=== PATIENT | male | born 1960 | race American Indian/Alaskan Native ===

== ENCOUNTER 2020-12-20 10:15 | Emergency (ER) | payer BC ==
[2020-12-20] MEDS ORDERED: hydrALAZINE 20 MG/1 ML INJ IV ONE (10:45)
--- NOTE | 2020-12-20 10:51 | Emergency Department Report ---
HPI - General Chief Complaint: High BP Time Seen by Provider: 12/20/20 10:45 - HPI HPI: 60-year-old -[place] male presents to the emergency department with complaint of elevated and uncontrolled blood pressure. He was sent in by a local physician after he tried to establish care with them for primary care needs. The patient presents to our triage with a blood pressure of 227/109. He denies any headache, vision change, slurred speech, chest pain, shortness of breath, lower extremity swelling, back pain. The patient does have a history of hypertension but has not been on blood pressure medications for the past 3 years due to financial issues. He is a former tobacco smoker. He drinks an occasional cup of coffee but denies any excessive caffeine use. He has not taken anything, nor was given anything, for his elevated blood pressure prior to presentation today. ED Past Medical Hx - Past Medical History Hx Hypertension: Yes (Pt. verbalized not taking meds since 03/05 due to expense.) Hx Heart Attack/AMI: No Hx Congestive Heart Failure: No Hx Diabetes: No Hx Deep Vein Thrombosis: No Hx Asthma: No Hx COPD: No - Surgical History Hx Coronary Stent: Yes (Stent X 1 in 2013) Hx Pacemaker: No Hx Internal Defibrillator: No - Social History Smoking Status: Former Smoker - Medications Home Medications: Home Medications Medication Instructions Recorded Confirmed Last Taken Type Aspirin EC [Ecotrin] 325 mg PO QDAY #30 tablet 09/26/15 Unknown Rx AtorvaSTATin [Lipitor] 20 mg PO QHS #30 tablet 09/26/15 Unknown Rx Metoprolol [Lopressor TAB] 12.5 mg PO BID #60 tablet 09/26/15 Unknown Rx Nitroglycerin [Nitrostat] 0.4 mg SL Q5M PRN #30 tablet 09/26/15 Unknown Rx lisinopriL [Zestril TAB] 20 mg PO QDAY #30 tablet 12/20/20 Unknown Rx ED Review of Systems ROS: Stated complaint: high blood pressure Other details as noted in HPI Comment: All other systems reviewed and negative Constitutional: denies: chills, fever Eyes: denies: eye pain, vision change ENT: denies: ear pain, throat pain Respiratory: denies: cough, shortness of breath Cardiovascular: denies: chest pain, palpitations Gastrointestinal: denies: abdominal pain, vomiting Genitourinary: denies: dysuria, discharge Musculoskeletal: denies: back pain, arthralgia Skin: denies: rash, lesions Neurological: denies: headache, weakness Physical Exam - Physical Exam Vital Signs: Vital Signs 12/20/20 10:22 Temperature 98 F Pulse Rate 74 Respiratory 20 Rate Blood Pressure 227/109 [Left] O2 Sat by Pulse 97 Oximetry Physical Exam: GENERAL: The patient is well-developed well-nourished. HENT: Normocephalic. Atraumatic. Patient has moist mucous membranes. EYES: Extraocular motions are intact. NECK: Supple. Trachea is midline. CHEST/LUNGS: Clear to auscultation. There is no respiratory distress noted. HEART/CARDIOVASCULAR: Regular. There is no tachycardia. There is no murmur. ABDOMEN: Abdomen is soft, nontender. Patient has normal bowel sounds. SKIN: Skin is warm and dry. NEURO: The patient is awake, alert, and oriented. The patient is cooperative. The patient has no focal neurologic deficits. Normal speech. MUSCULOSKELETAL: There is no tenderness or deformity. There is no limitation range of motion. ED Course Vital Signs 12/20/20 10:22 Temperature 98 F Pulse Rate 74 Respiratory 20 Rate Blood Pressure 227/109 [Left] O2 Sat by Pulse 97 Oximetry ED Medical Decision Making - Lab Data Result diagrams: 12/20/20 10:45 12/20/20 10:45 Lab Results 12/20/20 12/20/20 Range/Units 10:45 10:45 WBC 4.8 (4.5-11.0) K/mm3 RBC 4.46 (3.65-5.03) M/mm3 Hgb 13.5 (11.8-15.2) gm/dl Hct 39.8 (35.5-45.6) % MCV 89 (84-94) fl MCH 30 (28-32) pg MCHC 34 (32-34) % RDW 14.7 (13.2-15.2) % Plt Count 208 (140-440) K/mm3 Lymph % (Auto) 18.9 (13.4-35.0) % Hill % (Auto) 6.1 (0.0-7.3) % Eos % (Auto) 1.6 (0.0-4.3) % Baso % (Auto) 1.1 (0.0-1.8) % Lymph # (Auto) 0.9 L (1.2-5.4) K/mm3 Hill # (Auto) 0.3 (0.0-0.8) K/mm3 Eos # (Auto) 0.1 (0.0-0.4) K/mm3 Baso # (Auto) 0.1 (0.0-0.1) K/mm3 Seg Neutrophils % 72.3 H (40.0-70.0) % Seg Neutrophils # 3.5 (1.8-7.7) K/mm3 Sodium 140 (137-145) mmol/L Potassium 3.9 (3.6-5.0) mmol/L Chloride 106.6 (98-107) mmol/L Carbon Dioxide 21 L (22-30) mmol/L Anion Gap 16 mmol/L BUN 19 (9-20) mg/dL Creatinine 1.4 H (0.8-1.3) mg/dL Estimated GFR > 60 ml/min BUN/Creatinine Ratio 14 % Glucose 118 H (75-100) mg/dL Calcium 9.2 (8.4-10.2) mg/dL - Medical Decision Making This patient presents to the emergency department with elevated and uncontrolled blood pressure, but he is otherwise asymptomatic. He was sent in by a physician whom he was trying to establish care with for primary care after the elevated blood pressure was found in triage. Patient does have a history of hypertension but has been noncompliant with medications for the past 3 years. Patient's labs have been unremarkable including CBC and metabolic panel. He was given a dose of hydralazine and his blood pressure came down to a much more reasonable level. For all these reasons he appears safe for discharge home at this time. He has been started on lisinopril, which was the last blood pressure medication the patient took regularly that worked for him. We discussed dietary and/or lifestyle changes such as decrease salt and caffeine intake. He will keep a blood pressure log. He will return to the emergency department with any worsening of his symptoms or with any acute distress. Critical Care Time: No Critical care attestation.: If time is entered above; I have spent that time in minutes in the direct care of this critically ill patient, excluding procedure time. ED Disposition Clinical Impression: Asymptomatic hypertensive urgency Disposition: 01 HOME / SELF CARE / HOMELESS Is pt being admited?: No Condition: Stable Instructions: Hypertension, Adult Additional Instructions: Please follow-up with a primary care physician in the next few days. I am restarting you on lisinopril for your blood pressure. Try to stay away from foods that are high in salt and caffeinated products. Keep a blood pressure log. Return to the emergency department with any worsening of your symptoms, new or concerning symptoms not addressed during this current emergency department visit, or with any acute distress. Prescriptions: lisinopriL [Zestril TAB] 20 mg PO QDAY #30 tablet Referrals: JOANN MELTON MD [Primary Care Provider] - 3-5 Days BRONWYN NAIDU MD [Staff Physician] - 3-5 Days [facility] [Provider Group] - 3-5 Days Time of Disposition: 12:28
[2020-12-20 11:30] LABS: Basophils # (Auto) 0.1 K/mm3 (0.0-0.1); Basophils % (Auto) 1.1 % (0.0-1.8); Eosinophils # (Auto) 0.1 K/mm3 (0.0-0.4); Eosinophils % (Auto) 1.6 % (0.0-4.3); Hematocrit 39.8 % (35.5-45.6); Hemoglobin 13.5 gm/dl (11.8-15.2); Lymphocytes # (Auto) 0.9 K/mm3 (1.2-5.4); Lymphocytes % (Auto) 18.9 % (13.4-35.0); Mean Corpuscular HGB Conc 34 % (32-34); Mean Corpuscular Volume 89 fl (84-94); Monocytes # (Auto) 0.3 K/mm3 (0.0-0.8); Monocytes % (Auto) 6.1 % (0.0-7.3); Platelet Count 208 K/mm3 (140-440); Red Blood Count 4.46 M/mm3 (3.65-5.03); Red Cell Distribution Width 14.7 % (13.2-15.2)
[2020-12-20 11:46] LABS: BUN/Creatinine Ratio 14; Blood Urea Nitrogen 19 mg/dL (9-20); Calcium 9.2 mg/dL (8.4-10.2); Hemolysis Index 11
[2020-12-20 12:50] VITALS: BP 146/89
== END 2020-12-20 12:50 | disposition home or self-care (01) ==
LOC: ED 10:15
DX: I16.0 Hypertensive urgency (principal); Z87.891 Personal history of nicotine dependence
CPT/HCPCS: 36415; 80048; 85025; 96374; 99283; J0360